=== PATIENT | male | born 1970 | race Caucasian/White ===

== ENCOUNTER 2018-03-01 09:20 | Outpatient (CLI) | payer OTHER | END 2018-03-01 15:57 | disposition home or self-care (01) | LOC: LAB 09:20 | DX: R22.1 Localized swelling, mass and lump, neck (principal); Z51.81 Encounter for therapeutic drug level monitoring ==

== ENCOUNTER 2018-03-01 09:49 | Outpatient (CLI) | payer OTHER | END 2018-03-01 09:53 | disposition home or self-care (01) | LOC: SONOGRAMA 09:49 | DX: R22.1 Localized swelling, mass and lump, neck (principal) ==

== ENCOUNTER 2018-03-02 09:15 | Outpatient (CLI) | payer OTHER | END 2018-03-02 09:20 | disposition home or self-care (01) | LOC: TOM 09:15 | DX: R22.1 Localized swelling, mass and lump, neck (principal) | CPT/HCPCS: 70491; Q9965 ==

== ENCOUNTER 2018-03-08 10:32 | Outpatient (CLI) | payer OTHER | END 2018-03-08 10:34 | disposition home or self-care (01) | LOC: SONOGRAMA 10:32 | DX: R59.0 Localized enlarged lymph nodes (principal) ==